=== PATIENT | male | born 1965 | race Caucasian/White ===

== ENCOUNTER 2024-11-28 23:01 | Emergency (ER) | payer BC, SELFPAY ==
[2024-11-28 23:05] VITALS: BP 208/105
[2024-11-28 23:14] VITALS: BP 181/106
[2024-11-28 23:30] VITALS: BMI 30.8
[2024-11-28 23:33] VITALS: BP 203/111
--- NOTE | 2024-11-28 23:59 | ED.GENMED ---
History of Present Illness
General
Chief Complaint: Musculo-Skeletal Complaint
Source: patient
Exam Limitations: none
Time Seen by Provider: 11/28/24 23:17
Nursing documentation reviewed up to this point in time: agreed with
History of Present Illness
History of Present Illness:
Patient is a 58-year-old male who presents to the emergency department for evaluation of left foot injury. Patient [place] 7 [place] this [place] when he inverted his left ankle and fell into the water. He denies any
head strike or other associated injuries. Patient reports pain in his left foot, on the lateral aspect. He has been able to bear weight although he does have discomfort. He denies any numbness/tingling in left ankle/foot. No pain in left ankle
or left knee.
No other concerns today
Past History
Past History
ED Past Medical History: None
ED Past Surgical History: Urological
Social History
Tobacco: Non-smoker
Alcohol: None
Drug: None
Review of Systems
Review of Systems
Allergies reviewed?: Yes
All Other Systems: ROS reviewed and negative except as documented in HPI and ROS
Phy Exam
Physical Exam
Physical Exam:
Vitals: Hypertensive, otherwise vital signs stable. Afebrile
General: Patient is well appearing, no acute distress
Skin: Warm and dry, no rashes or lesions
Head: Normocephalic, atraumatic
Throat: Protecting airway
Neck: Normal ROM, no cervical spine tenderness
Cardiac: Regular rate
Pulm: No apparent respiratory distress
Abdomen: Nondistended
Extremities: Diffuse edema of left foot with point tenderness at base of left fifth metatarsal. No tenderness of left midfoot, hindfoot, calcaneus. No tenderness of left medial/lateral malleolus or head of left fibula. Achilles intact. 2+
palpable left DP pulse with normal sensation and capillary refill WNL. Full range of motion in left ankle and left knee.
Neuro: Grossly intact
Psychiatric: Normal affect.
Course
Orders/Labs/Results
Orders:
Orders
11/28/24 23:12
Foot, Left 3 View [CR Foot - Left Min 3 Views] Urgent
Comment:
Reason For Exam: fall twist inj
11/29/24 00:03
Crutches-Treatment ONCE
Splints/Slings/Crut- Treatment ONCE
Location: Left
Type of Splint: Short Leg
11/29/24 00:09
Acetaminophen [Tylenol] 650 mg PO NOW STA
Vital Signs
Initial and Last Documented VS:
Initial Vital Signs
Temp Pulse Resp BP Pulse Ox
97.6 F 53 16 208/105 98
11/28/24 23:05 11/28/24 23:05 11/28/24 23:05 11/28/24 23:05 11/28/24 23:05
Last Documented Vital Signs
Temp Pulse Resp BP Pulse Ox
97.6 F 58 18 203/111 96
11/28/24 23:05 11/28/24 23:33 11/28/24 23:33 11/28/24 23:33 11/29/24 01:18
MDM/Problems Addressed
Differential Diagnosis Includes:
Not limited to: foot fracture, lisfranc injury, ankle fracture, achilles tendon rupture, ankle sprain, foot sprain, etc
MDM/Problems Addressed:
58-year-old male presenting with left foot injury which occurred when he inverted his left ankle running on the beach earlier this evening. He has pain in his left foot which is worse with ambulating. No numbness/tingling of affected foot or other
associated injuries. Patient hypertensive with otherwise stable vital signs. He states he has not taken his nighttime blood pressure medicine yet and is currently following with his primary care regarding his hypertension. Physical exam as above.
X-ray of left foot shows a fracture at the base of the left fifth metatarsal. Will place patient in posterior short leg splint, provide crutches, and advise outpatient orthopedic follow-up. Discussed nonweightbearing, rest, ice, elevation, NSAIDs
for pain.
Return precautions discussed. Patient comfortable with plan.
Chronic conditions affecting care:
HTN
Acute Exacerbation and/or Progression of Chronic Illness:
Acutely hypertensive
*Radiology
Radiology exam reviewed: preliminary read by ED provider (Foot x-ray reviewed by me-fracture of base of left fifth metatarsal)
*Pulse Oximetry
SaO2: 96
Oxygen Mode of Delivery: Room air
Patient hypoxic: no
*EKG
Interpreted by ED Provider?: NA
*Tur[place] Picker Interpretation
Rate: [place] Picker- N/A
*Critical Care Note
Total Time (30-74mins, 75-104mins- exclusive of procedures): Not Applicable
ED Attending Note
-
Portions of this chart may have been created with voice recognition software.� Occasional wrong word or��sound alike� substitutions may have occurred due to the inherent limitations of voice recognition software.
Discharge Plan
Departure
Patient Disposition: Home (Routine Discharge)
Date of Disposition: 11/29/24
Time of Disposition: 00:15
Patient with high blood pressure during this ER visit?: Yes
Condition: Good
Discharge Problem:
Fracture of base of fifth metatarsal bone of left foot
Instructions: Splint Care, Foot Fracture ED, BLOOD PRESSURE
Prescriptions:
No Action
hydrocodone-acetaminophen 1 TABLET tablet
1 - 2 tab PO Q4HPRN PRN (Reason: pain) Qty: 12 0RF
Referrals:
Zion Chandra MD [Active, Orthopedics] - Follow up in 5-7 days
UNKNOWN - PT DOES,NOT KNOW [Unknown Provider]
Activity Restrictions/Additional Instructions:
RETURN TO THE EMERGENCY DEPARTMENT WITH ANY INTRACTABLE PAIN, NUMBNESS/TINGLING IN LEFT FOOT, WORSENING IN CURRENT SYMPTOMS, OR ANY OTHER CONCERNS
- As discussed�your x-ray showed a fracture of the base of your left fifth metatarsal. You should remain nonweightbearing with splint in place until you are seen by orthopedics. You should use crutches to assist with ambulation. Continue to ice
and elevate your left foot frequently over the next few days. Take Tylenol and/or Motrin as needed for pain.
- Follow-up with orthopedics for further evaluation/management. The contact information for Dr. Chandra has been provided for you above.
Monitor your symptoms closely return to the emergency department with any acute worsening/new symptoms or any other concerns
Interventions
Interventions:
*Risk Screen - Suicide Last Done: 11/28/24 23:05
*General Assessment Last Done: 11/28/24 23:05
*Neglect/Abuse Screening Last Done: 11/28/24 23:05
*ED- Fall Risk Assessment Last Done: 11/28/24 23:05
*ED COVID-19 Vaccine History Last Done: 11/28/24 23:05
*Nursing Disposition Last Done: 11/29/24 01:21
ED-Musculoskeletal Assessment Last Done: 11/28/24 23:30
Discharge Date and Time
Print Language: [place]
[2024-11-29] MEDS: TYLENOL 650 MG PO (00:16)
== END 2024-11-29 01:23 | disposition home or self-care (01) ==
LOC: EMR 23:01
PROVIDERS: EMERGENCY PHYSICIAN Emergency Medicine; FAMILY PHYSICIAN Family Medicine
DX: S92.352A Displaced fracture of fifth metatarsal bone, left foot, initial encounter for closed fracture (principal); X50.1XXA Overexertion from prolonged static or awkward postures, initial encounter; W16.42XA Fall into unspecified water causing other injury, initial encounter; I10 Essential (primary) hypertension
CPT/HCPCS: 29515; 99283; 73630